=== PATIENT | male | born 1985 | race Caucasian/White ===

== ENCOUNTER 2024-07-01 08:42 | Emergency (ER) | payer OTHER, SELFPAY ==
--- NOTE | 2024-07-01 09:14 | ED_ITS ---
HPI - General Adult General Chief complaint: Upper Respiratory Infection Stated complaint: strep throat Time Seen by Provider: 07/01/24 09:15 Source: patient Mode of arrival: ambulatory Limitations: no limitations History of Present Illness HPI narrative: 39-year-old male patient presents to the [facility] with complaints of sore throat to the right side for the past 3 days. Patient states he did have some congestion runny nose symptoms about 5 days ago but states he thinks that those is mostly resolved. Patient denies any fevers, body aches or chills. Patient states he is concerned he might have strep and when to come out be tested. Related Data Home Medications ?Medication ?Instructions ?Recorded ?Confirmed ?Last Taken ?Type bupropion HCl 300 mg 24 hr tablet, mg PO 07/01/24 Unknown History extended release lisinopril 10 mg tablet mg 07/01/24 Unknown History Allergies Allergy/AdvReac Type Severity Reaction Status Date / Time No Known Allergies Allergy Verified 07/01/24 09:07 Review of Systems Review of Systems: CONSTITUTIONAL: Denies fever, chills, or sweats. EYES: Denies visual changes, redness, or discharge. ENT: Denies rhinorrhea, congestion, Positive sore throat, denies otalgia. CARDIOVASCULAR: Denies chest pain, palpitations, or edema. RESPIRATORY: Denies cough or dyspnea. GASTROINTESTINAL: Denies abdominal pain, nausea, vomiting, or diarrhea. GENITOURINARY: Denies dysuria or hematuria. SKIN: Denies rash or itching. MUSCULOSKELETAL: Denies back pain, joint pain, or myalgia. NEUROLOGIC: Denies headache, numbness, or weakness. PSYCHIATRIC: Denies anxiety or depression. [facility] Past Medical History Medical History (Updated 07/01/24 @ 09:41 by CELSA Feliz) No significant past medical history Comments At the time of my signature I agree with nursing past medical history, surgical, social, and family history. There is no relevant family history pertinent to the presenting complaint. Exam Narrative: GENERAL: Well-appearing, well-nourished, and in no acute distress. HEAD: Normocephalic, atraumatic. EYES: PERRLA and EOMI. ENT: Nares clear, no rhinorrhea or epistaxis. Mucous membranes moist. posterior pharynx with no tonsillar enlargement, exudates or lesions present. Bilateral TMs are clear no erythema foreign bodies canal. NECK: Supple. Right-sided lymphadenopathy and tenderness on palpation CHEST: Clear to auscultation. No respiratory distress. HEART: Regular rate and rhythm. No murmur heard. Normal peripheral pulses. ABDOMEN: Soft, nontender, nondistended, normal active bowel sounds. EXTREMITIES: Normal range of motion. No edema. SKIN: Warm, dry, no rash. NEURO: No focal deficits. Alert and oriented x3. Course Course Level of Care: Express Care Visit Vital Signs Vital signs: Vital Signs Temperature 36.1 C L 07/01/24 09:17 Pulse Rate 78 07/01/24 09:17 Respiratory Rate 18 07/01/24 09:17 Blood Pressure 122/76 07/01/24 09:17 Pulse Oximetry 97 07/01/24 09:17 Oxygen Delivery Room Air 07/01/24 09:17 Temperature 36.1 C L 07/01/24 09:17 Pulse Rate 78 07/01/24 09:17 Respiratory Rate 18 07/01/24 09:17 Blood Pressure 122/76 07/01/24 09:17 Pulse Oximetry 97 07/01/24 09:17 Oxygen Delivery Room Air 07/01/24 09:17 Vital signs reviewed Medical Decision Making MDM Narrative Medical decision making narrative: discussed with patient his rapid strep test today is negative. We will send to the lab for culture if the culture comes back positive we will call him and antibiotic at that time. Discussed with patient to continue using [id number] medications as well as warm salt-water gargles, hot tea and honey to help with the source throat symptoms. Patient verbalized understanding denies any other questions or concerns at this time. Differential Diagnosis Differential Diagnosis: differential diagnosis: Viral pharyngitis, pharyngitis, group A strep, infectious mononucleosis, gonococcal pharyngitis, exudative pharyngitis, oral candidiasis. Chronic allergies, postnasal drip, GERD, abscess formation, but glottitis, retropharyngeal abscess formation, or airway obstruction. Vital Signs Vital Signs: Vital Signs Temperature 36.1 C L 07/01/24 09:17 Pulse Rate 78 07/01/24 09:17 Respiratory Rate 18 07/01/24 09:17 Blood Pressure 122/76 07/01/24 09:17 Pulse Oximetry 97 07/01/24 09:17 Oxygen Delivery Room Air 07/01/24 09:17 Temperature 36.1 C L 07/01/24 09:17 Pulse Rate 78 07/01/24 09:17 Respiratory Rate 18 07/01/24 09:17 Blood Pressure 122/76 07/01/24 09:17 Pulse Oximetry 97 07/01/24 09:17 Oxygen Delivery Room Air 07/01/24 09:17 Lab Data Labs: Lab Results 07/01/24 Range/Units 09:23 POC Grp A Strep Screen Negative (Negative) Critical Care Time Critical Care Time Critical Care Time: No Discharge Plan Discharge Clinical Impression: Acute viral pharyngitis, Viral URI Patient Disposition: Home, Self-Care Condition: Stable Instructions: Antibiotic Form, Pharyngitis (ED) Additional Instructions: Viral illness may last between 7-12days; antibiotic is NOT recommended at this time. Recommend antihistamine such as Benadryl at night time and Claritin/Zyrtec/Tiana during the day Cough syrup may cause drowsiness; avoid driving or take it at night time. Use inhaler as needed for cough, wheezing, shortness of breath or chest tightness. Also, recommend symptomatic treatment includes: rest, fluids, and increase humidity of the air at home. Recommend Acetaminophen or nonsteroidal anti-inflammatory agents (NSAIDs) as directed in the bottle to reduce fever and/pain/headache. Avoid smoking/second-hand smoke. Limit visits to areas with large crowds. Please schedule a follow-up visit with your personal physician for further evaluation and treatment within 3-5days. Including recheck and discussion of your blood pressure. If your symptoms persist, change or worsen significantly before you can contact your personal physician then please, without delay, go to the emergency department for further evaluation. Patient Language: Turkmen Prescriptions: No Action lisinopril 10 mg tablet bupropion HCl 300 mg tablet extended release 24 hr PO Follow-up/Referrals: Hannah,Soo Davis MD [Primary Care Provider] - Time of Disposition: 09:37
[2024-07-01 09:17] VITALS: BP 122/76; PULSE 78; RESP 18; TEMP 36.1; O2SAT 97
[2024-07-01 09:25] LABS: EDSTREPNEGPOS1 Negative (Negative)
== END 2024-07-01 09:43 | disposition home or self-care (01) ==
PROVIDERS: Emergency Provider Nurse Practitioner Family; PCP Student in an Organized Health Care Education/Training Program
DX: J02.8 Acute pharyngitis due to other specified organisms (principal); J06.9 Acute upper respiratory infection, unspecified
CPT/HCPCS: 87081; 87880; 99203; G0463